=== PATIENT | male | born 1940 | race Caucasian/White ===

== ENCOUNTER 2023-07-22 08:03 | Outpatient (REF) | payer OTHER, SELFPAY | END 2023-07-22 08:04 | disposition home or self-care (01) | LOC: HO.BBR 08:03 | PROVIDERS: PCP Physician Assistant Medical; Visit Provider Internal Medicine | DX: Z13.89 Encounter for screening for other disorder (principal) ==

== ENCOUNTER 2024-01-20 08:14 | Outpatient (REF) | payer OTHER, SELFPAY | END 2024-01-20 08:15 | disposition home or self-care (01) | LOC: HO.BBR 08:14 | PROVIDERS: PCP Physician Assistant Medical; Visit Provider Internal Medicine | DX: Z13.89 Encounter for screening for other disorder (principal) ==

== ENCOUNTER 2024-07-13 08:04 | Outpatient (REF) | payer OTHER, SELFPAY ==
--- OUTSIDE RECORDS SUMMARY | 2024-07-13 08:12 | XMS_ITS | Clinical Summary ---
Author Organization [facility] Address [address] [place] [address] Phone Care Team Providers Care Project Designer Name Role Phone Anjel Perez Primary Care Provider [phone] Allergies Active Allergy Reactions Criticality Noted Date Comments Penicillins 06/26/2023 Medications hydroCHLOROthiaz karolina (HYDRODIURIL) 25 mg tablet Take 1 tablet (25 mg total) by mouth 1 (one) time each day. Active lisinopriL (PRINIVIL,ZESTRI L) 2.5 mg tablet Take 1 tablet (2.5 mg total) by mouth 1 (one) time each day. Active metFORMIN (GLUCOPHAGE) 500 mg tablet Take 1 tablet (500 mg total) by mouth 2 (two) times a day with meals. Active Encounters Date Type Department Care Team Description 04/20/2024 9:15 AM EST Office Visit 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 Calcaneal spur DX:Calcaneal spu r Essential hypertension DX:Essent ial hypertension Cortical senile cataract DX:Phillip ical senile cataract Joint pain DX:Joint pain Pure hypercholesterolemia, unspecified DX:Pure hypercholesterolemia, unspecified Type 2 diabetes mellitus wit h hyperglycemia (CMS/HCC) DX:Type 2 diabetes mellitus with hyperglycemia (HCC) 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 DX:Spondylolis thesis Arthritis DX:Arthritis Difficulty balancing DX:Difficul ty balancing Social History Tobacco Use Types Packs/Day Years Used Date Smoking Tobacco: Never Tobacco Cessation:Counseling Given: Not Answered Sex and Gender Information Value Date Recorded Sex Assigned at Not on file Legal Sex Male 6:09 PM EST Gender Identity Not on file Sexual Orientation Not on file Obstetrics History Last Filed Vital Signs Vital Sign Reading Time Taken Comments Blood Pressure 158/80 04/20/2024 9:12 AM EST Pulse 64 04/20/2024 9:12 AM EST Temperature 36 ??C (96.8 ??F) 04/20/2024 9:12 AM EST Respiratory Rate - - Oxygen Saturation 100% 04/20/2024 9:12 AM EST Inhaled Oxygen Concentration - - Weight 80.7 kg (178 lb) 04/20/2024 9:12 AM EST Height 177.8 cm (5' 10 ) 03/11/2024 11:26 AM EDT Body Mass Index 25.54 03/11/2024 11:26 AM EDT Plan of Treatment Upcoming Encounters Date Type Department Care Team (Late st Contact Info) Description 04/19/2025 9:00 AM EST Office Visit [facility] Hematology Oncology [address] [place] [id number] Sujatha Esposito MD [address] [place] [address] Health Maintenance Due Date Last Done Comments Diabetes: Annual GFR (Glomerular Filtration Rate) 1942 Diabetes: Annual Foot Exam 1952 Diabetes: Annual Retina Eye Exam 1952 RSV Immunization Patients 60+ Years Old (1 - 1-dose 75+ series) 2017 Cholesterol Screening (Lipid Panel) 04/14/2022 Depression Screening 04/14/2022 Falls Risk Assessment 04/14/2022 Social Influencers of Health Screening 04/14/2022 COVID-19 Vaccine ( season) 2024 03/14/2021, 07/12/2020, 06/21/2020 Diabetes: Annual Urine Albumin-Creatinine Ratio (uACR) 04/06/2024 Diabetes: Blood Sugar Control Test (HGBA1C) 04/06/2024 Hypertension/CHF/CAD Annual BMP Blood Test 04/06/2024 DTaP,Tdap,and Td Vaccines (3 - Td or Tdap) 05/19/2024 05/19/2014, 05/19/2014 Pneumococcal Vaccine: 50+ Years Completed 05/19/2014, 05/19/2014, 01/20/2008 Zoster Vaccines Completed 07/23/2019, 04/12, 06/13/2007, Additional history exists Influenza Vaccine Completed 01/24/2024, , 04/27/2022, Additional history exists HIB Vaccines Aged Out No longer eligi ble based on patient's age to complete this topic HPV Vaccines Aged Out No longer eligi ble based on patient's age to complete this topic Hepatitis A Vaccines Aged Out No long er eligible based on patient's age to complete this topic Hepatitis B Vaccines Aged Out No long er eligible based on patient's age to complete this topic IPV Vaccines Aged Out No longer eligi ble based on patient's age to complete this topic MMR Vaccines Aged Out No longer eligi ble based on patient's age to complete this topic Meningococcal ACWY Vaccine Aged Out N o longer eligible based on patient's age to complete this topic Meningococcal B Vacine Aged Out No lo nger eligible based on patient's age to complete this topic RSV Immunization Patients Under 20 months Aged Out No longer eligible based on patient's age to complete this topic Varicella Vaccines Aged Out No longer eligible based on patient's age to complete this topic Procedures Procedure Name Priority Date/Time Associated Diagnosis Comments ..MISCELLANEOUS REFERENCE LAB TEST 04/20/2024 from Last 3 Months Results * Miscellaneous reference lab test (04/20/2024) us Provider Onbase LAB BLOOD ORDERABLES Final Re sult from Last 3 Months Insurance [facility] Care Teams Project Designer Relationship Specialty Start Date End Date Anjel Perez PA [address] [place] [phone] PCP - General 06/10/23
--- OUTSIDE RECORDS SUMMARY | 2024-07-13 08:12 | XMS_ITS | Clinical Summary ---
Author Organization [facility] Address [address] [place] [address] Care Team Providers Care Professor Of Violin Name Role Phone Anjel Perez Primary Care Provider [phone] Allergies Active Allergy Reactions Criticality Noted Date Comments Penicillins 06/26/2023 Medications Medication Sig Dispensed Refills Start Date End Date Status metFORMIN (GLUCOPHAGE) tablet 500 mg Take 1 tablet (500 mg total) by mouth 2 (two) times a day with meals. 0 Active lisinopril (PRINIVIL,ZESTRIL) tablet 2.5 mg Take 1 tablet (2.5 mg total) by mouth daily. 0 Active hydroCHLOROthiazide (HYDRODIURIL) tablet 25 mg Take 1 tablet (25 mg total) by mouth daily. 0 Active Active Problems No known active problems Social History Tobacco Use Types Packs/Day Years Used Date Smoking Tobacco: Former Cigarettes Smokeless Tobacco: Never Tobacco Cessation:Counseling Given: Not Answered Alcohol Use Standard Drinks/Week Comments Yes 0 (1 standard drink = 0.6 oz pur e alcohol) Social Sex and Gender Information Value Date Recorded Sex Assigned at Male 06/10/2023 11:53 AM EST Gender Identity Not on file Sexual Orientation Not on file Job Start Date Occupation Industry Not on file Not on file Not on file Last Filed Vital Signs Vital Sign Reading Time Taken Comments Blood Pressure 139/65 07/16/2023 9:29 AM EST Pulse 64 07/16/2023 9:29 AM EST Temperature 36.2 ??C (97.2 ??F) 07/16/2023 9:29 AM ES T Respiratory Rate - - Oxygen Saturation 100% 07/16/2023 9:29 AM EST Inhaled Oxygen Concentration - - Weight 77.6 kg (171 lb) 07/16/2023 9:29 AM EST Height - - Body Mass Index - - Plan of Treatment Health Maintenance Due Date Last Done Comments Depression Screening 1954 Preventative Health Evaluation 1960 Fall Risk Assessment 2007 Pneumococcal Vaccine (2 of 2 - PPSV23 or PCV20) 05/19/2015 05/19/2014, 01/20/2008 RSV Adult > 60+ Yrs or (1 - 1-dose 75+ series) 2017 COVID-19 Vaccine (3 - season) 2024 07/12/2020, 06/21/2020 Influenza Vaccine (#1) 2024 3, 04/27/2022, 02/23/2021, Additional history exists DTap / Tdap / Td (2 - Tdap) 05/19/2024 05/19/2014 Shingrix-Zoster Vaccine Completed 07/23/2019, 04/23 Hepatitis B Vaccines Aged Out No long er eligible based on patient's age to complete this topic RSV Ped < 20 months Aged Out No longe r eligible based on patient's age to complete this topic Care Teams Professor Of Violin Relationship Specialty Start Date End Date Anjel Perez PA [address] [place] [phone] PCP - General Physician Confectionery Maker 06/10/23
== END 2024-07-13 08:05 | disposition home or self-care (01) ==
LOC: HO.BBR 08:04
PROVIDERS: PCP Physician Assistant Medical; Visit Provider Internal Medicine
DX: Z13.89 Encounter for screening for other disorder (principal)

== ENCOUNTER 2025-01-25 08:07 | Outpatient (REF) | payer OTHER, SELFPAY | END 2025-01-25 08:08 | disposition home or self-care (01) | LOC: HO.BBR 08:07 | PROVIDERS: PCP Student in an Organized Health Care Education/Training Program; Visit Provider Internal Medicine | DX: Z13.89 Encounter for screening for other disorder (principal) ==